=== PATIENT | male | born 1945 | race Caucasian/White ===

== ENCOUNTER 2020-09-30 09:21 | Observation (INO) | payer MEDICARE, BC ==
[~2020-09-30] VITALS: Ht 170.2 cm; Wt 75.7 kg
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
[~2020-09-30 09:21] MED LIST: IBUPROFEN 800800 M1 PO
[2020-09-30 15:51] VITALS: BP 135/57
--- NOTE | 2020-09-30 15:51 | EKG ---
[place] [address] ELECTROCARDIOGRAM REPORT Name: FERMIN JJ Room: [facility]#: [id number] Admission: 09/30/20 Attend Phys: José Antonio Rivers Discharge: Date of : 49 Date of Service: 09/30/20 1525 Report #: [id number] THIS REPORT FOR: //name// [facility] Test Date: 2020-09-30 Test Time: 15:25:03 Pat Name: FERMIN JJ Department: Room: Gender: Regulator Mechanic: : 1945 Requested By: Paul Leger Order Number: [id number] Alin MD: Paul Leger Measurements Intervals [place] Rate: 46 P: 74 SD: 181 QRS: 54 QRSD: 95 T: 53 QT: 463 QTc: 405 Interpretive Statements Sinus bradycardia Minimal ST elevation, anterior leads probably a normal variant No previous ECG available for comparison Electronically Signed On 09-30-2020 15:51:38 CDT by Paul Leger [email or web address] <ELECTRONICALLY SIGNED> By: Paul Leger MD, [facility] 09/30/20 1551 1525 1525 Paul Leger MD, [facility] /EPI
[2020-09-30 15:57] LABS: HEMATOCRIT 39.3 % (42.0-52.0); HEMOGLOBIN 13.7 gm/dL (14.0-18.0); MCH 32.4 pg (26.0-34.0); MCHC 34.8 g/dL (28.0-37.0); MCV 93.2 fL (80.0-100.0); MPV 6.8 fl. (7.2-11.1); RBC 4.22 mil/uL (4.50-6.00); RDW-CV 12.9 % (10.5-14.5); WBC 7.7 thou/uL (4.0-11.0)
[2020-09-30 16:04] LABS: CALCIUM 8.6 mg/dL (8.5-10.1); CREATININE 0.8 mg/dL (0.6-1.3); POTASSIUM 4.4 mmol/L (3.5-5.1)
[2020-09-30 20:11] VITALS: BP 150/79
[2020-10-01 00:11] VITALS: BP 151/72
[2020-10-01 04:27] VITALS: BP 108/61
--- NOTE | 2020-10-01 06:26 | NUR ---
PT SLEPT WELL ALL SHIFT. REPORTED SOME PAIN AT 0100 AT INSERTION SITE UPPER LEFT CHEST, TYLENOL GIVEN. HE IS ALERT AND ORIENTED, UP AD ROHAN, ROOM AIR. NO OTHER ISSUES REPORTED BY PT.
[2020-10-01 07:45] VITALS: BP 132/71
[2020-10-01 10:22] VITALS: BP 132/71
[2020-10-01 10:37] VITALS: BP 132/71
--- NOTE | 2020-10-01 10:46 | NUR ---
ASSUMED CARE OF PT AT 0730. PT A&0X4, COMPLAINED OF PAIN TO LEFT CHEST POST PACEMAKER INSERTION SITE-TREATED WITH PRN TYLENOL WITH RELIEF. PT TRACING AV PACED ON THE MUSIC THERAPIST. LUE SLING IN PLACE. PACEMAKER PRECAUTIONS EDUCATION TO PT. PT COMMUNICATES UNDERSTANDING OF TEACHING. ON RA SAT UPPER 90'S. DENIES ANY SHORTNESS OF BREATH. PT UP AD ROHAN IN ROOM. LEFT CHEST POST PACEMAKER INSERTION SITE C/D/I. PT GOAL FOR TODAY IS DISCHARGE PLANNING TO HOME. AM ASSESSMENT CHARTED. MEDICATIONS PER MAY. PT REPOSITIONS SELF. HOURLY ROUNDING OBSERVED. BED IN LOW POSITION. CALL LIGHT WITHIN REACH. WILL CONTINUE PLAN OF CARE.
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
--- NOTE | 2020-10-01 10:48 | TST ---
[place] [address] TREADMILL STRESS TEST Name: FERMIN JJ Room: [address] MRicky#: [id number] Admission: 09/30/20 Attend Phys: José Antonio Rivers Discharge: Date of : 49 Date of Service: 09/30/20 1402 Report #: [id number] THIS REPORT FOR: cc: Cammie Stevens Linda J. DO Holkins,Paul Morales MD [facility] ~ DATE OF SERVICE: 09/30/2020 TILT TABLE TEST He was initially clinically and hemodynamically stable with a resting blood pressure of 126/64 with the patient to fine. With the patient sitting, it was 129/73 with a heart rate of 48. With the patient standing, it was 105/67 with a heart rate of 55. He was tilted and there was no significant change in heart rate or blood pressure. After administration of nitrates and 6 minutes post-nitrate administration, he developed marked bradycardia with an 8-second pause and a fall in blood pressure to 88/45. The chronotropic response was most impressive and more impressive than the following systemic pressure. The patient completely lost consciousness. He was removed from the tilted position and laid supine. There was gradual return to normal state of consciousness and after a brief period of diaphoresis, he was quite comfortable. Heart rate returned in the 50-60 range and blood pressure to 100 systolic. IMPRESSION: 1. Positive tilt table test for provocation of syncope with marked bradyarrhythmias and an 8-second pause noted. 2. Modest vasodepressor response after nitrates with a fall to a robert of 88/45. 3. Given the magnitude of abnormality induced by the tilt table test with a nitrate provocation and the prior history of syncope, I would recommend proceeding with permanent dual chamber pacing in this patient. These impressions were discussed with the patient, family, and Dr. Stevens. <ELECTRONICALLY SIGNED> By: Paul Leger MD, [facility] 10/01/20 1048 1402 2218 Paul Leger MD, FACC /nt
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
== END 2020-10-01 11:14 | disposition home or self-care (01) ==
LOC: M.CL 09:21 → M.TBA-CV 18:10 → M.2W 19:28
PROVIDERS: ADMIT Internal Medicine Cardiovascular Disease; ATTEND Internal Medicine
DX: I49.8 Other specified cardiac arrhythmias (principal); R55 Syncope and collapse; R94.39 Abnormal result of other cardiovascular function study; E78.00 Pure hypercholesterolemia, unspecified; Z79.899 Other long term (current) drug therapy